=== PATIENT | female | born 1975 | race Caucasian/White ===

== ENCOUNTER 2019-03-04 08:42 | Emergency (ER) | payer MEDICAID, OTHER ==
[~2019-03-04] VITALS: Ht 162.6 cm; Wt 81.2 kg
[2019-03-04] MEDS ORDERED: CITALOPRAM HYDROBR 20 MG TAB PO ONE (10:00)
[2019-03-04 10:43] VITALS: BP 147/81
== END 2019-03-04 10:46 | disposition home or self-care (01) ==
LOC: ER 08:42
DX: F41.9 Anxiety disorder, unspecified (principal); Z76.0 Encounter for issue of repeat prescription